=== PATIENT | female | born 1960 | race Caucasian/White ===

== ENCOUNTER 2018-10-15 10:04 | Emergency (ER) | payer OTHER ==
[2018-10-15] MEDS ORDERED: Sodium Chloride 0.9% 10 ML Syringe FLUSH PRN (10:48)
[2018-10-15] MEDS ORDERED: Sodium Chloride 0.9% 1,000 ML IV SCH (11:00)
--- NOTE | 2018-10-15 12:08 | CT ---
CT abdomen and pelvis Technique: Multiple axial sections were obtained from above the dome of the diaphragm inferiorly through the pubic symphysis. Intravenous and oral contrast not utilized. Study has been performed as a ureteral stone protocol. Findings: Dilated left ureter and left kidney collecting system is seen. These findings are caused by an obstructing distal left ureteral stone measuring about 8.9 mm in size which is located slightly proximal to the UVJ. No other abnormal calcifications are seen along the course of the ureters. No abnormal calcifications are seen within the kidneys. Visualized lung bases show nothing acute. Noncontrast appearance of the liver and spleen appear within normal limits. Adrenal glands show no nodule. Pancreas is normal. Gallbladder contains no calcified gallstones. Aorta shows no aneurysm. No retroperitoneal adenopathy or mesenteric abnormalities are seen. No pelvic mass or adenopathy is seen. No free fluid or inflammatory change is seen. Appendix felt to be visualized and is normal in size. Appendix appears to have a small calcified appendicolith. Bone window settings were reviewed which show minimal scattered degenerative change. No acute osseous abnormality is seen. Impression: 1. Left-sided hydronephrosis caused by an 8.9 mm stone located slightly proximal to the UVJ. 2. Other findings which are felt to be incidental as noted above. Diagnostic code #3
--- NOTE | 2018-10-15 13:43 | EDM.PDOC ---
ED HPI GENERAL MEDICAL PROBLEM - General Chief Complaint: Abdominal Pain Stated Complaint: ABDOMEN AND BACK PAIN Time Seen by Provider: 10/15/18 10:32 Source of Information: Reports: Patient History Limitations: Reports: No Limitations - History of Present Illness INITIAL COMMENTS - FREE TEXT/NARRATIVE: The patient presents with left sided flank pain that radiates to her left lower abdomen. She has nausea and vomiting with it. She is better now. She has no fever, chills, cough, chest pain, or shortness of breath. She has no history of kidney stones. She has no dysuria or hematuria. This started at 2:30am this morning. Onset: Gradual Duration: Hour(s): Location: Reports: Abdomen, Back Quality: Reports: Sharp Severity: Severe Improves with: Reports: None Worsens with: Reports: None Associated Symptoms: Reports: Nausea/Vomiting. Denies: Chest Pain, Cough, Fever /Chills, Headaches, Shortness of Breath - Related Data Allergies Allergy/AdvReac Type Severity Reaction Status Date / Time No Known Allergies Allergy Verified 10/15/18 10:28 Home Meds: Home Meds Calcium Carbonate [Calcium] 500 mg PO DAILY 10/15/18 [History] Fish Oil/[place]-3 Fatty Acids [Fish Oil] 1 each PO DAILY 10/15/18 [History] Hydrocodone/Acetaminophen [Hydrocodon-Acetaminophen 5-325] 1 - 2 each PO Q6HR PRN #20 tablet 10/15/18 [Rx] Multivitamin [Multi-Vitamin Daily] 1 each PO DAILY 10/15/18 [History] Ondansetron [Zofran ODT] 4 mg PO Q6H PRN #20 tab.dis 10/15/18 [Rx] Tamsulosin HCl [Flomax] 0.4 mg PO DAILY #7 cap.er.24h 10/15/18 [Rx] Past Medical History HEENT History: Reports: None Cardiovascular History: Reports: None Respiratory History: Reports: None Gastrointestinal History: Reports: None Genitourinary History: Reports: None [employer] History: Reports: None Musculoskeletal History: Reports: None Neurological History: Reports: None Psychiatric History: Reports: None Endocrine/Metabolic History: Reports: None Hematologic History: Reports: None Immunologic History: Reports: None Oncologic (Cancer) History: Reports: None Dermatologic History: Reports: None - Infectious Disease History Infectious Disease History: Reports: None - Past Surgical History Head Surgeries/Procedures: Reports: None Social & Family History - Tobacco Use Smoking Status *Q: Never Smoker - Caffeine Use Caffeine Use: Reports: Coffee - Recreational Drug Use Recreational Drug Use: No ED ROS GENERAL - Review of Systems Review Of Systems: See Below Constitutional: Reports: No Symptoms HEENT: Reports: No Symptoms Respiratory: Reports: No Symptoms Cardiovascular: Reports: No Symptoms Endocrine: Reports: No Symptoms GI/Abdominal: Reports: Abdominal Pain, Nausea, Vomiting : Reports: Flank Pain (Left) ED EXAM, RENAL/ - Physical Exam Exam: See Below Exam Limited By: No Limitations General Appearance: Alert, No Apparent Distress Ears: Normal External Exam Nose: Normal Inspection Head: Atraumatic, Normocephalic Neck: Normal Inspection Respiratory/Chest: No Respiratory Distress, Lungs Clear, Normal Breath Sounds Cardiovascular: Regular Rate, Rhythm, No Edema, No Murmur GI/Abdominal: Soft, Non-Tender, No Organomegaly, No Mass Back Exam: No: CVA Tenderness (L) Course - Vital Signs Last Recorded V/S: Last Vital Signs Temp 97 F 10/15/18 10:26 Pulse 77 10/15/18 10:26 Resp 16 10/15/18 10:26 BP 133/72 10/15/18 10:26 Pulse Ox 100 10/15/18 10:26 - Orders/Labs/Meds Orders: Active Orders 24 hr Category Date Time Status Peripheral IV Care [RC] . DIRECTED Care 10/15/18 10:49 Active UA W/MICROSCOPIC [URIN] Stat Lab 10/15/18 13:13 Results Sodium Chloride 0.9% [Normal Saline] 1,000 ml Med 10/15/18 11:00 Active IV ASDIRECTED Sodium Chloride 0.9% [Saline Flush] Med 10/15/18 10:48 Active 10 ml FLUSH ASDIRECTED PRN Peripheral IV Insertion Adult [OM.PC] Stat Oth 10/15/18 10:48 Ordered Medication Orders Sodium Chloride (Normal Saline) 1,000 mls @ 125 mls/hr IV ASDIRECTED DIANA Last Admin: 10/15/18 11:45 Dose: 125 mls/hr Sodium Chloride (Saline Flush) 10 ml FLUSH ASDIRECTED PRN PRN Reason: Keep Vein Open Last Admin: 10/15/18 11:35 Dose: 10 ml Labs: Laboratory Tests 10/15/18 10/15/18 10/15/18 Range/Units 11:35 11:35 13:13 WBC 12.94 H (3.98-10.04) K/mm3 RBC 4.52 (3.98-5.22) M/mm3 Hgb 13.6 (11.2-15.7) gm/L Hct 41.0 (34.1-44.9) % MCV 90.7 (79.4-94.8) fl MCH 30.1 (25.6-32.2) pg MCHC 33.2 (32.2-35.5) g/dl RDW Std Deviation 44.0 (36.4-46.3) fL Plt Count 234 (182-369) K/mm3 MPV 11.1 (9.4-12.3) fl Neut % (Auto) 87.3 H (34.0-71.1) % Lymph % (Auto) 5.1 L (19.3-51.7) % [place] % (Auto) 7.3 (4.7-12.5) % Eos % (Auto) 0 L (0.7-5.8) Baso % (Auto) 0.1 (0.1-1.2) % Neut # (Auto) 11.30 H (1.56-6.13) K/mm3 Lymph # (Auto) 0.66 L (1.18-3.74) K/mm3 [place] # (Auto) 0.95 H (0.24-0.36) K/mm3 Eos # (Auto) 0.00 L (0.04-0.36) K/mm3 Baso # (Auto) 0.01 (0.01-0.08) K/mm3 Manual Slide Review Abnormal smear Sodium 142 (136-145) mEq/L Potassium 3.5 (3.5-5.1) mEq/L Chloride 105 (98-107) mEq/L Carbon Dioxide 26 (21-32) mEq/L Anion Gap 14.5 (5-15) BUN 14 (7-18) mg/dL Creatinine 1.2 H (0.55-1.02) mg/dL Est Cr Clr Drug Dosing 47.84 mL/min Estimated GFR (MDRD) 46 (>60) mL/min BUN/Creatinine Ratio 11.7 L (14-18) Glucose 126 H (74-106) mg/dL Calcium 8.9 (8.5-10.1) mg/dL Total Bilirubin 0.4 (0.2-1.0) mg/dL AST 20 (15-37) U/L ALT 33 (14-59) U/L Alkaline Phosphatase 67 (46-116) U/L Total Protein 7.6 (6.4-8.2) g/dl Albumin 4.1 (3.4-5.0) g/dl Globulin 3.5 gm/dL Albumin/Globulin Ratio 1.2 (1-2) Lipase 123 (73-393) U/L Urine Color Light yellow (Yellow) Urine Appearance Clear (Clear) Urine pH 6.5 (5.0-8.0) Ur Specific [place] 1.020 (1.005-1.030) Urine Protein Negative (Negative) Urine Glucose (UA) Negative (Negative) Urine Ketones 1+ H (Negative) Urine Occult Blood 2+ H (Negative) Urine Nitrite Negative (Negative) Urine Bilirubin Negative (Negative) Urine Urobilinogen 0.2 (0.2-1.0) Ur Leukocyte Esterase Negative (Negative) Meds: Medications Generic Name Dose Route Start Last Admin Trade Name Freq PRN Reason Stop Dose Admin Sodium Chloride 1,000 mls @ 125 mls/hr 10/15/18 11:00 10/15/18 11:45 Normal Saline IV 125 mls/hr ASDIRECTED DIANA Administration Sodium Chloride 10 ml 10/15/18 10:48 10/15/18 11:35 Saline Flush FLUSH 10 ml ASDIRECTED PRN Administration Keep Vein Open - Re-Assessments/Exams Free Text/Narrative Re-Assessment/Exam: 10/15/18 13:41 I ordered an IV saline lock, labs, UA and a CT of her abdomen and pelvis without contrast. Her CBC and CMP look good. Her UA shows no UTI. Her CT shows left sided hydronephrosis caused by an 8.9 mm stone located slightly proximal to the UVJ. Other findings which are felt to be incidental. I called Dr Layton and he will have his nurse call her to make a follow up appointment. I will get her on the flomax and something for pain and nausea. Departure - Departure Time of Disposition: 14:00 Disposition: Home, Self-Care 01 Condition: Good Clinical Impression: Kidney stone on left side, Calculi, ureter, Ureteral colic - Discharge Information *PRESCRIPTION DRUG MONITORING PROGRAM REVIEWED*: No *COPY OF PRESCRIPTION DRUG MONITORING REPORT IN PATIENT TIARRA: No Prescriptions: Hydrocodone/Acetaminophen [Hydrocodon-Acetaminophen 5-325] 1 - 2 each PO Q6HR PRN #20 tablet PRN Reason: Pain Ondansetron [Zofran ODT] 4 mg PO Q6H PRN #20 tab.dis PRN Reason: Nausea\vomiting Tamsulosin HCl [Flomax] 0.4 mg PO DAILY #7 cap.er.24h Referrals: PCP,None [Primary Care Provider] - Benson Layton MD [Ordering Only Provider] - Forms: ED Department Discharge Additional Instructions: Drink plenty of fluids. Take the flomax daily. Take motrin or aleve for pain. If that does not work take the hydrocodone. Take the zofran every 6 hours as needed for nausea and vomiting. Please return if you are worse. Someone from Dr Layton's office will be calling to set up an appointment. - My Orders Last 24 Hours: My Active Orders 10/15/18 10:48 Sodium Chloride 0.9% [Saline Flush] 10 ml FLUSH ASDIRECTED PRN Peripheral IV Insertion Adult [OM.PC] Stat 10/15/18 10:49 Peripheral IV Care [RC] . DIRECTED 10/15/18 11:00 Sodium Chloride 0.9% [Normal Saline] 1,000 ml IV ASDIRECTED 10/15/18 13:13 UA W/MICROSCOPIC [URIN] Stat - Assessment/Plan Last 24 Hours: My Active Orders 10/15/18 10:48 Sodium Chloride 0.9% [Saline Flush] 10 ml FLUSH ASDIRECTED PRN Peripheral IV Insertion Adult [OM.PC] Stat 10/15/18 10:49 Peripheral IV Care [RC] . DIRECTED 10/15/18 11:00 Sodium Chloride 0.9% [Normal Saline] 1,000 ml IV ASDIRECTED 10/15/18 13:13 UA W/MICROSCOPIC [URIN] Stat
== END 2018-10-15 14:30 | disposition home or self-care (01) ==
LOC: JD.ED 10:04
DX: N13.2 Hydronephrosis with renal and ureteral calculous obstruction (principal); Z79.899 Other long term (current) drug therapy
CPT/HCPCS: 36415; 74176; 80053; 81001; 83690; 85025; 96360; 96361; 99284; J7040